=== PATIENT | female | born 1995 | race Caucasian/White ===

== ENCOUNTER 2022-07-30 20:37 | Outpatient (CLI) | payer BC ==
[2022-07-30 21:54] LABS: BASOPHILS % (AUTO) 0.5 %; EOSINOPHILS # (AUTO) 0.1 10^3/uL (0.0-0.7); EOSINOPHILS % (AUTO) 1.4 %; HCT - HEMATOCRIT 37.1 % (37.0-47.0); HGB - HEMOGLOBIN 12.2 g/dL (12.0-16.0); LYMPHOCYTES # (AUTO) 2.8 10^3/uL (1.5-3.5); LYMPHOCYTES % (AUTO) 32.7 %; MEAN CORPUSCULAR HEMOGLOBIN 29.4 pg (27.0-31.0); MEAN CORPUSCULAR HGB CONC 32.9 g/dL (32.0-36.0); MEAN CORPUSCULAR VOLUME 89.4 fL (81.0-99.0); MEAN PLATELET VOLUME 9.7 fL (7.9-10.8); MONOCYTES # (AUTO) 0.6 10^3/uL (0.0-1.0); MONOCYTES % (AUTO) 7.2 %; PLT - PLATELET COUNT 235 10^3/uL (130-450); RED BLOOD COUNT 4.15 10^6/uL (4.20-5.40); RED CELL DISTRIBUTION WIDTH 13.2 % (12.0-15.0); WHITE BLOOD COUNT 8.6 x10^3/uL (4.8-10.8)
--- NOTE | 2022-07-30 22:56 | Ultrasound Report ---
PROCEDURE: OB First Trimester w/TV INDICATIONS: POSITIVE TEST OUTSIDE/PRIOR DATING DATA: Last menstrual period (LMP): 06/04/2022. LMP-based estimated date of delivery (RUTHIE): 06/11/2022. First dating scan (date and location): 07/30/2022. Estimated date of delivery (RUTHIE) from first dating scan: 03/08/2023. TECHNIQUE: Real-time scanning was performed of the fetus and maternal pelvic organs, with image documentation. Endovaginal scanning was also performed to better visualize the fetus and maternal ovaries. COMPARISON: None FINDINGS: Embryo: Single live intrauterine is identified with crown-rump length measuring 1.9 cm cor responding to 8 weeks 3 days. A small subchorionic hemorrhage is present measuring 2.5 x 2.2 x 3.1 cm . Heart rate: 169 bpm Measurement variability in dating: +/- 4 weeks by LMP, +/- 7 days by mean sac diameter (use before 6 weeks gestation if crown-rump length not able to be measured), +/- 5 days by crown-rump length (6-12 weeks gestation). Maternal organs: Ovaries demonstrate a left corpus luteal cyst.. IMPRESSION: Single live intrauterine with ultrasound gestational age of 8 weeks 3 days. Small subchorionic hemorrhage. Reviewed by: Sakina Pablo MD on 07/30/2022 10:54 PM PDT Approved by: Sakina Pablo MD on 07/30/2022 10:54 PM PDT Station ID: [id number]
[2022-08-01 05:09] LABS: RPR Non Reactive (Non Reactive)
[2022-08-01 08:08] LABS: HBsAG SCREEN Negative (Negative)
[2022-08-01 14:07] LABS: VARICELLA-ZOSTER AB IGG 155 index (Immune >165)
[2022-08-02 05:08] LABS: HIV SCREEN 4TH GENERATION Non Reactive (Non Reactive)
[2022-08-03 03:09] LABS: HCV AB Non Reactive (Non Reactive)
== END 2022-07-30 20:38 | disposition home or self-care (01) ==
LOC: DI 20:37
PROVIDERS: ATTEND Obstetrics & Gynecology
DX: Z32.01 Encounter for pregnancy test, result positive (principal); Z36.89 Encounter for other specified antenatal screening
CPT/HCPCS: 36415; 85025; 86592; 86762; 86787; 86803; 86850; 86900; 86901; 87340; 87389

== ENCOUNTER 2022-10-06 17:46 | Outpatient (CLI) | payer BC ==
--- NOTE | 2022-10-06 19:03 | Ultrasound Report ---
PROCEDURE: OB 14+ Weeks INDICATIONS: BLEEDING IN OUTSIDE/PRIOR DATING DATA: Last menstrual period (LMP): 06/04/2022. LMP-based estimated date of delivery (RUTHIE): 03/11/2023. First dating scan (date and location): 07/30/2022. Estimated date of delivery (RUTHIE) from first dating scan: . The below data below was generated using the ultrasound RUTHIE of 06/08/2022 TECHNIQUE: Real-time scanning was performed of the fetus, with image documentation and biometric measurements. COMPARISON: 07/30/2022 FINDINGS: General: A single living intrauterine gestation is present. Presentation: Variable Placenta: Placental position is posterior, without previa. Amniotic fluid index: 16.1 cm, normal for gestational age. heart rate: 143 beats per minute. Maternal cervical canal: 4 cm long; normal length is 2.5 cm or more. Estimated gestational age from initial scan: 18 weeks 1 day. Measurement variability for biometric dating: +/- 10 days from 12-20 weeks gestation, +/- 2 weeks fro m 20-30 weeks gestation, +/- 3 weeks for 30 weeks gestation or later. Anatomic survey: Diaphragm: Diaphragm is intact. Stomach: Left-sided stomach is present. Kidneys: No hydronephrosis. Normal is less than 5 mm in 2nd trimester, less than 7 mm in 3rd trimester. Bladder: Normal in size. Extremities: All 4 extremities identified. IMPRESSION: 1. 18 week 1 day live intrauterine . 2. Normal LEILANI. 3. Normal placenta. Reviewed by: Doyle Gutierrez on 10/06/2022 7:02 PM PDT Approved by: Doyle Gutierrez on 10/06/2022 7:02 PM PDT Station ID: [id number]
== END 2022-10-06 17:47 | disposition home or self-care (01) ==
LOC: DI 17:46
PROVIDERS: ATTEND Midwife
DX: O46.92 Antepartum hemorrhage, unspecified, second trimester (principal); Z3A.18 18 weeks gestation of pregnancy

== ENCOUNTER 2022-10-20 09:00 | Outpatient (CLI) | payer BC | END 2022-10-20 09:15 | disposition home or self-care (01) | LOC: LAB.N 09:00 | PROVIDERS: ATTEND Emergency Medicine | DX: R07.0 Pain in throat (principal) | CPT/HCPCS: 87070 ==

== ENCOUNTER 2023-01-17 11:24 | Outpatient (CLI) | payer BC | END 2023-01-17 11:25 | disposition home or self-care (01) | LOC: LAB 11:24 | PROVIDERS: ATTEND Obstetrics & Gynecology | DX: O09.91 Supervision of high risk pregnancy, unspecified, first trimester (principal) | CPT/HCPCS: 36415; 82950 ==

== ENCOUNTER 2023-01-22 07:12 | Outpatient (CLI) | payer BC ==
[2023-01-22 07:52] LABS: GTT GLUCOSE,FASTING 99 mg/dL (74-109)
[2023-01-25 07:10] LABS: LYME TOTAL AB CIA Negative (Negative)
== END 2023-01-22 07:13 | disposition home or self-care (01) ==
LOC: LAB 07:12
PROVIDERS: ATTEND Physician Assistant
DX: R73.02 Impaired glucose tolerance (oral) (principal); R53.83 Other fatigue
CPT/HCPCS: 36415; 82607; 82951; 82952; 83921; 86618

== ENCOUNTER 2023-02-03 08:00 | Outpatient (CLI) | payer BC | END 2023-02-03 23:59 | disposition home or self-care (01) | LOC: LAB.WC 08:00 | PROVIDERS: ATTEND Obstetrics & Gynecology | DX: Z36.85 Encounter for antenatal screening for Streptococcus B (principal) | CPT/HCPCS: 87797 ==

== ENCOUNTER 2023-02-10 17:12 | Outpatient (CLI) | payer BC ==
--- NOTE | 2023-02-11 11:22 | Ultrasound Report ---
PROCEDURE: OB F/U or Repeat INDICATIONS: GESTATIONAL DIABETES OUTSIDE/PRIOR DATING DATA: Last menstrual period (LMP): 06/04/2022. LMP-based estimated date of delivery (RUTHIE): 03/11/2023. First dating scan (date and location): 07/30/2022. Estimated date of delivery (RUTHIE) from first dating scan: 03/08/2023. The below data below was generated using the ultrasound RUTHIE of 03/11/2023 TECHNIQUE: Real-time scanning was performed of the fetus, with image documentation and biometric measurements. Endovaginal scanning: Not performed. COMPARISON: OB ultrasound, 10/06/2022 and 07/30/2022. FINDINGS: General: A single living intrauterine gestation is present. Presentation: Vertex Placenta: Placental position is posterior, without previa. Amniotic fluid index: 15.1 cm, with the largest pocket 4.4 cm. heart rate: 123 beats per minute. Maternal cervical canal: Not visualized. biometrics: Biparietal diameter: 36 weeks 5 days Head circumference: 38 weeks 4 days Abdominal circumference: 37 weeks 6 days Femur length: 35 weeks 3 days Estimated gestational age from initial scan: 35 weeks 6 days. Composite gestational age from present scan: 37 weeks 1 day Estimated weight and percentile: 3160.7 g; 85.5% for gestational age Measurement variability in biometric dating: +/- 10 days from 12-20 weeks gestation, +/- 2 weeks from 20-30 weeks gestation, +/- 3 weeks at 30 weeks gestation or more. IMPRESSION: 1. Single living IUP redemonstrated. 2. The estimated weight is 85.8% for gestational age. 3. LEILANI 15.1 cm. 4. Cervix is not visualized. Reviewed by: Dwayne Juarez MD on 02/11/2023 11:21 AM PDT Approved by: Dwayne Juarez MD on 02/11/2023 11:21 AM PDT Station ID: [id number]
== END 2023-02-10 17:13 | disposition home or self-care (01) ==
LOC: DI 17:12
PROVIDERS: ATTEND Obstetrics & Gynecology
DX: O24.419 Gestational diabetes mellitus in pregnancy, unspecified control (principal); Z3A.37 37 weeks gestation of pregnancy

== ENCOUNTER 2023-02-16 08:00 | Outpatient (CLI) | payer BC ==
[2023-02-16 10:33] LABS: BILIRUBIN,URINE NEGATIVE (NEGATIVE); GLUCOSE, URINE (UA) NEGATIVE (NEGATIVE); KETONES,URINE (UA) NEGATIVE (NEGATIVE); LEUKOCYTE ESTERASE, URINE NEGATIVE (NEGATIVE); NITRITE,URINE NEGATIVE (NEGATIVE); OCCULT BLOOD,URINE TRACE-INTA (NEGATIVE); PROTEIN,URINE NEGATIVE (NEGATIVE); UROBILINOGEN,URINE 1 (NORMAL) E.U./dL (NORMAL)
[2023-02-16 11:03] LABS: CLARITY,URINE CLEAR (CLEAR); WBC,URINE 0-3 /HPF (0-5)
[2023-02-16 11:04] LABS: BACTERIA,URINE Rare /HPF (None Seen); RBC,URINE 0-5 /HPF (0-5); SQUAMOUS EPITHELIAL CELL,UR FEW Squamous (<= Few)
[2023-02-16 11:05] LABS: CRYSTALS,URINE >50 Calcium Oxalate /LPF
[2023-02-16 11:28] LABS: CREATININE,URINE 48.8 mg/dL; PROTEIN/CREATININE RATIO,URINE 0.1 (<=0.2)
== END 2023-02-16 23:59 | disposition home or self-care (01) ==
LOC: LAB.R 08:00
PROVIDERS: ATTEND Obstetrics & Gynecology
DX: O24.419 Gestational diabetes mellitus in pregnancy, unspecified control (principal); O99.891 Other specified diseases and conditions complicating pregnancy; R31.9 Hematuria, unspecified
CPT/HCPCS: 81001; 82570; 84156; 87086

== ENCOUNTER 2023-02-19 07:49 | Outpatient (CLI) | payer BC ==
--- NOTE | 2023-02-20 12:45 | Ultrasound Report ---
PROCEDURE: Abdomen Limited INDICATIONS: RIGHT FLANK PAIN TECHNIQUE: Real-time focused scanning was performed of the abdomen, with image documentation. COMPARISONS: None. FINDINGS: Liver: Liver is normal in size and homogeneous in echotexture. Appropriate hepatopedal portal vein flow. Gallbladder: The gallbladder is normal without stones, sludge, wall thickening, or pericholecystic fl uid. No sonographic Shelton's sign per the technologist. Biliary ducts: Intrahepatic bile ducts are non-dilated. Extrahepatic bile duct caliber measures 3 m m. Normal is 6-7 mm or less in diameter, or 10 mm or less post-cholecystectomy. Pancreas: Visualized portions of the pancreas are sonographically normal. Right kidney: Normal in size and echotexture. Right kidney measures 1.9 cm long. No hydronephrosis o r nephrolithiasis. No solid masses. No complex renal cystic lesions which require follow-up. Aorta: Visualized aorta is normal in caliber at less than 3 cm. IVC: Intrahepatic inferior vena cava is patent. Miscellaneous: The patient is reportedly 8 months . The fetus was not evaluated. IMPRESSION: 1. No evidence of right hydronephrosis or visible hydroureter. 2. Other right upper quadrant structures have a normal sonographic appearance. Reviewed by: Marguerite Smyth MD on 02/20/2023 12:43 PM PDT Approved by: Marguerite Smyth MD on 02/20/2023 12:43 PM PDT Station ID: [id number]
== END 2023-02-19 07:50 | disposition home or self-care (01) ==
LOC: DI 07:49
PROVIDERS: ATTEND Obstetrics & Gynecology
DX: R10.9 Unspecified abdominal pain (principal)

== ENCOUNTER 2023-02-21 14:17 | Outpatient (CLI) | payer BC ==
[2023-02-21 14:46] VITALS: BP 115/66; O2SAT 98
--- NOTE | 2023-02-21 15:51 | PROCEDURE REPORT ---
- HPI Diagnosis/Indication for NST: Gestational Diabetes Current EDU 03/11/23 Gestation 37 Weeks and 3 Days 3 Para 3 Vital Signs Temperature 98.4 F 02/21/23 14:27 Heart Rate 78 02/21/23 14:27 Respiratory Rate 16 02/21/23 14:27 Blood Pressure 115/66 02/21/23 14:27 Temperature 98.4 F 02/21/23 15:15 Heart Rate 78 02/21/23 15:15 Respiratory Rate 16 02/21/23 15:15 Blood Pressure 115/66 02/21/23 15:15 O2 Saturation 98 02/21/23 14:38 If not protocol: Oxygen Flow, liters/minute - NST Procedure NST Procedure Start Date 02/21/23 Start Time 14:27 Stop Time 15:14 Vibroacoustic Stimulation Used No Patient States Movement Yes 115 mod maribell + A cells no D cells reactive - Results and Plan Findings/Impression: reassuring NST D/C home with scheduled ANC Plan: D/C home with precautions going for BPP today.
== END 2023-02-21 15:20 | disposition home or self-care (01) ==
LOC: WFO 14:17 → FBP 14:18 → WFO 15:20
PROVIDERS: ATTEND Obstetrics & Gynecology
DX: O24.419 Gestational diabetes mellitus in pregnancy, unspecified control (principal); Z3A.37 37 weeks gestation of pregnancy
CPT/HCPCS: 59025

== ENCOUNTER 2023-02-21 15:24 | Outpatient (CLI) | payer BC ==
--- NOTE | 2023-02-21 16:36 | Ultrasound Report ---
PROCEDURE: OB Biophysical Profile INDICATIONS: GESTATIONAL DIABETES OUTSIDE/PRIOR DATING DATA: Last menstrual period (LMP): 06/04/2022. LMP-based estimated date of delivery (RUTHIE): 03/11/2023. First dating scan (date and location): 07/30/2022. Estimated date of delivery (RUTHIE) from first dating scan: 03/08/2023. The below data below was generated using the LMP RUTHIE of 03/11/2023 TECHNIQUE: Real-time scanning was performed of the fetus, with image documentation and biometric garcia surements. Biophysical profile was also obtained. COMPARISON: 07/30/2022, 10/06/2022, 02/10/2023 FINDINGS: General: A single living intrauterine gestation is present. Presentation: Cephalic Placenta: Placental position is posterior, without previa. Amniotic fluid index: 15.1 cm heart rate: 153 beats per minute. Maternal cervical canal: 3.6 cm Biophysical profile: Tone: 2 points. Movement: 2 points. Respiration: 0 points. Largest pocket of fluid: 2 points. Umbilical artery Doppler: Abdomen 2.57, mid 1.98, placenta 2.12 IMPRESSION: 1. Biophysical profile score 6/8. 2. LEILANI is normal measuring 15.6 cm. 3. Normal cord Dopplers. Reviewed by: Doyle Gutierrez on 02/21/2023 4:35 PM PDT Approved by: Doyle Gutierrez on 02/21/2023 4:35 PM PDT Station ID: [id number]
== END 2023-02-21 15:25 | disposition home or self-care (01) ==
LOC: DI 15:24
PROVIDERS: ATTEND Nurse Practitioner
DX: O24.419 Gestational diabetes mellitus in pregnancy, unspecified control (principal); Z3A.00 Weeks of gestation of pregnancy not specified

== ENCOUNTER 2023-02-26 13:50 | Outpatient (CLI) | payer BC ==
[2023-02-26 14:06] VITALS: BP 114/69
--- NOTE | 2023-02-26 17:06 | PROCEDURE REPORT ---
- HPI Diagnosis/Indication for NST: Gestational Diabetes Current EDU 03/11/23 Gestation 38 Weeks and 1 Days 3 Para 2 Vital Signs Temperature 99.0 F 02/26/23 14:02 Heart Rate 86 02/26/23 14:02 Respiratory Rate 16 02/26/23 14:02 Blood Pressure 114/69 02/26/23 14:02 Temperature 99.0 F 02/26/23 14:02 Heart Rate 86 02/26/23 14:02 Respiratory Rate 16 02/26/23 14:02 Blood Pressure 114/69 02/26/23 14:02 O2 Saturation If not protocol: Oxygen Flow, liters/minute - NST Procedure NST Procedure Start Date 02/26/23 Start Time 14:00 Stop Time 14:30 Vibroacoustic Stimulation Used No Patient States Movement Yes 38+1 weeks, gestational diabetes 140, moderate variability, +accels, no decels reactive NST
== END 2023-02-26 14:35 | disposition home or self-care (01) ==
LOC: WFO 13:50 → FBP 13:51 → WFO 14:35
PROVIDERS: ATTEND Obstetrics & Gynecology Obstetrics
DX: O24.419 Gestational diabetes mellitus in pregnancy, unspecified control (principal); Z3A.38 38 weeks gestation of pregnancy
CPT/HCPCS: 59025

== ENCOUNTER 2023-03-02 09:40 | Outpatient (CLI) | payer BC ==
[2023-03-02 09:59] VITALS: BP 115/63
--- NOTE | 2023-03-02 19:47 | PROCEDURE REPORT ---
- HPI Diagnosis/Indication for NST: Gestational Diabetes (on metformin) Current EDU 03/11/23 Gestation 38 Weeks and 5 Days 3 Para 2 Vital Signs Temperature 97.7 F 03/02/23 09:45 Heart Rate 87 03/02/23 09:45 Respiratory Rate 16 03/02/23 09:45 Blood Pressure 115/63 03/02/23 09:45 Temperature 97.7 F 03/02/23 09:45 Heart Rate 87 03/02/23 09:45 Respiratory Rate 16 03/02/23 09:45 Blood Pressure 115/63 03/02/23 09:45 O2 Saturation If not protocol: Oxygen Flow, liters/minute - NST Procedure NST Procedure Start Date 03/02/23 Start Time 09:50 Stop Time 10:24 Vibroacoustic Stimulation Used No Patient States Movement Yes NST reviewed in real time. acels. no decels. moderated variability. normal baseline. = reactive.
== END 2023-03-02 10:30 | disposition home or self-care (01) ==
LOC: WFO 09:40 → FBP 09:42 → WFO 10:30
PROVIDERS: ATTEND Obstetrics & Gynecology
DX: O24.415 Gestational diabetes mellitus in pregnancy, controlled by oral hypoglycemic drugs (principal); Z3A.38 38 weeks gestation of pregnancy
CPT/HCPCS: 59025

== ENCOUNTER 2023-03-03 19:41 | Outpatient (CLI) | payer BC ==
[2023-03-03 21:22] VITALS: BP 136/58
--- NOTE | 2023-03-03 23:09 | PROCEDURE REPORT ---
- HPI Diagnosis/Indication for NST: Gestational Diabetes Current EDU 03/09/23 Gestation 39 Weeks and 1 Days 3 Para 2 Vital Signs Temperature 98.4 F 03/03/23 19:50 Heart Rate 71 03/03/23 19:50 Respiratory Rate 16 03/03/23 19:50 Blood Pressure 136/58 H 03/03/23 19:50 Temperature 98.4 F 03/03/23 19:50 Heart Rate 71 03/03/23 19:50 Respiratory Rate 16 03/03/23 19:50 Blood Pressure 136/58 H 03/03/23 19:50 O2 Saturation If not protocol: Oxygen Flow, liters/minute - NST Procedure NST Procedure Start Date 03/03/23 Start Time 19:49 Stop Time 20:10 Vibroacoustic Stimulation Used No Patient States Movement Yes - Results and Plan Plan: Patient is a 27-year-old -0-0-3 at 38 weeks 6 days gestation here for NST. NST Performed 03/03/2023 NST Read 03/03/2023 FHT: 125 bpm baseline, moderate variability, accelerations present, no decelerations. Reactive NST [place]: Irregular Diagnosis 38 weeks gestation Gestational diabetes Patient initially brought for induction of labor, but currently unable, so assessed wellbeing. No concern at this time, patient will return for induction.
== END 2023-03-03 20:23 | disposition home or self-care (01) ==
LOC: WFO 19:41 → FBP 19:42 → WFO 20:23
PROVIDERS: ATTEND Obstetrics & Gynecology
DX: O24.419 Gestational diabetes mellitus in pregnancy, unspecified control (principal); Z3A.38 38 weeks gestation of pregnancy
CPT/HCPCS: 59025; 99212

== ENCOUNTER 2023-03-03 22:00 | Inpatient (IN) | payer BC ==
[2023-03-03] MEDS ORDERED: NIFEdipine 10 MG CAPSULE PO PRN (22:37)
[2023-03-03] MEDS ORDERED: fentaNYL 100 MCG/2 ML VIAL IVP PRN (22:37)
[2023-03-03] MEDS ORDERED: lidocaine 1% 20 ML MDV ID PRN (22:37)
[2023-03-03] MEDS ORDERED: OXYTOCIN 10 UNIT/ML VIAL IM PRN (22:37)
[2023-03-03] MEDS ORDERED: CARBOPROST TROMETHAMINE 250 MCG/ML AMP IM PRN (22:37)
[2023-03-03] MEDS ORDERED: OXYTOCIN/SODIUM CHLORIDE 500 ML IV PRN (22:37)
[2023-03-03] MEDS ORDERED: miSOPROStoL 200 MCG TABLET PR PRN (22:37)
[2023-03-03] MEDS ORDERED: TRANEXAMIC ACID IN NACL 1,000 MG/100 ML BAG IV PRN (22:37)
[2023-03-03] MEDS ORDERED: hydrALAZINE INJ 20 MG/ML VIAL IVP PRN ×2 (22:37)
[2023-03-03] MEDS ORDERED: LABETALOL 20 MG/4 ML SYRINGE IVP PRN ×3 (22:37)
[2023-03-03] MEDS ORDERED: TERBUTALINE 1 MG/ML VIAL SUBQ PRN (22:37)
[2023-03-03] MEDS ORDERED: miSOPROStoL 200 MCG TABLET BC PRN (22:37)
[2023-03-03] MEDS ORDERED: LACTATED RINGERS 1,000 ML IV PRN (22:37)
[2023-03-03] MEDS ORDERED: SODIUM CHLORIDE FLUSH 0.9% 10 ML SYRINGE IVP PRN (22:37)
[2023-03-03] MEDS ORDERED: METHYLERGONOVINE 0.2 MG/ML VIAL IM PRN (22:37)
--- NOTE | 2023-03-03 22:40 | HISTORY & PHYSICAL EXAMINATION ---
Admit History - : 3 Parity: 2 Risk/History: positive: Gestational diabetes, Other (History of shoulder dystocia) - Mother's Labs Mother's Blood Type: positive: O Mother's RH: positive: Positive GBS: positive: Group B Step Negative Rubella Status: positive: Immune - Other Maternal History Other Maternal History: HPI: Patient is a 27-year-old -0-0-3 at 38 weeks 6 days gestation presenting today for cervical ripening to progress to induction tomorrow. She has good movement. Reactive NST today. Denies loss of fluid. No MAHARAJ/BV or RUQP. No vaginal bleeding. Denies nausea and vomiting. Denies urinary urgency or dysuria. All other symptoms reviewed and were negative except per HPI. Course LMP: 06/04/2022 RUTHIE by LMP:03/11/2023 Initial U/S:07/30/2022 @ 8w4d c/w LMP (03/08/2023) FINAL RUTHIE:03/11/2023 RISKS: h/o SHOULDER DYSTOCIA 8#12oz baby, resolved after 1 minute. 2.5 ago [ ] growth U/S at 36-37w for delivery planning 02/11 ultraound with 85.5%ile at 35w6d. 3160 g. HC 33.66 82.9%ile AC 34 96.4%ile hc/AC 0.99 40%ile discussed risk of repeat shoulder dystocia - and how U/S can be off by a significant amount. Pt prefers . GESTATIONAL DIABETES on metformin. sugars wnl. nsts ordered. discussed induction at 39 weeks. - hopes not to have induction as wants natural labor [ ] seen on L&D late jan for R flank pain, likely stone, renal U/S 1 week later wnl. 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 Wants waterbirth - told only labor in tub prefers female provider but understands our call system. Blood type O+ Antibody negative CBC: PLT 235 HCT 37.1 HGB 12.2 RUB:immune VZV:non immune HBsAg negative HepC negative RPR/AB-EIA:negative HIV:negative PAP:02/2021 normal GC/CT: DECLINES 02/03 HSV:denies self or partner Genetic testing:no thank you vaccines: declines all. 50gm OGCT: 143 3HR GTT: 99,229,198,172, Breast Pump:Has one already 3rd trimester H/H 12.6 / 36.5 PLT 176 GBS: collected 02/03 negative Delivery plan: MOD: unmedicated vaginal delivery. PMH asthma Acif Reflux PSH Tonsils and adenoidectomy Sinus surgery OB History 1. 09/23/2018, 37 weeks, , twins, females, 5 pounds 1 ounces, 5 pounds 13 ounces. Twin A: Cerebellar hypoplasia and seizures, twin B retained placenta 2. 06/04/2020, 39 weeks 4 days, , female, 8 pounds 12 ounces, heart defect, Lorraine Bekah syndrome, seizures, shoulder dystocia. SH Denies tobacco, alcohol, drugs Family History Father: heart disease, CVA, [place] Mother: Breast cancer Brother: Asthma MGM: Unsure cancer MGF: Seizures, heart disease Allergies No known drug allergies Medications Metformnin 500mg QHS D3 Iron PNV Physical exam: General: Alert, oriented, no acute distress Head: Normal cephalic atraumatic Eyes: PERRLA, extraocular motions intact. Respiratory: Normal rate of respiration. No accessory muscle use, normal respiratory effort. Cardiovascular: Regular rate and rhythm Abdomen: Gravid, nontender, nondistended Extremities: Normal range of motion Neuro: Oriented x3. Normal movements Psych: Appropriate mood and affect. Normal judgment and insight SVE: 250/-3 FHT: 125 bpm baseline, moderate variability, accelerations present, no decelerations [place]: Irregular Plan 27-year-old -0-0-3 at 38 weeks 6 days gestation admitted for planned induction. 1. Induction of labor - Patient was previously counseled the risk, benefits, alternatives of induction of labor and again agrees today. -She agrees to plan of misoprostol for cervical ripening. If successful, will likely progress towards induction of amniotomy versus oxytocin. 2. 38 weeks gestation 3. Gestational diabetes, A2, managed with oral antihyperglycemics -Every 4 hour glucose checks, 2 hours in active labor 4. History of shoulder dystocia -Counseled on the risk of repeat shoulder dystocia and declined section, wishes to proceed with induction. 5. Hesitancy with male providers. -Prior to scheduling, patient was offered induction on Tuesday when a female private provider would be here follow-up declines at like to proceed - NST Procedure NST Procedure Start Time 19:49 Stop Time 20:10 Meds/Allgy - Allergies Allergies/Adverse Reactions: Allergies Allergy/AdvReac Type Severity Reaction Status Date / Time gluten Allergy Cramps Verified 02/08/23 15:08 Plan for Labor - Plan For Labor I expect patient to be DC'd or transferred within 96 hours.: Yes
[2023-03-03] MEDS ORDERED: SODIUM CHLORIDE FLUSH 0.9% 10 ML SYRINGE IVP SCH (23:00)
[2023-03-03 23:20] LABS: BASOPHILS % (AUTO) 0.1 %; EOSINOPHILS # (AUTO) 0.1 10^3/uL (0.0-0.7); HCT - HEMATOCRIT 33.3 % (37.0-47.0); HGB - HEMOGLOBIN 11.6 g/dL (12.0-16.0); LYMPHOCYTES # (AUTO) 1.7 10^3/uL (1.5-3.5); LYMPHOCYTES % (AUTO) 24.3 %; MEAN CORPUSCULAR HEMOGLOBIN 32.4 pg (27.0-31.0); MEAN CORPUSCULAR HGB CONC 34.8 g/dL (32.0-36.0); MEAN PLATELET VOLUME 10.7 fL (7.9-10.8); MONOCYTES # (AUTO) 0.6 10^3/uL (0.0-1.0); MONOCYTES % (AUTO) 8.1 %; NEUTROPHILS # (AUTO) 4.5 10^3/uL (1.5-6.6); NEUTROPHILS % (AUTO) 66.1 %; PLT - PLATELET COUNT 166 10^3/uL (130-450); RED BLOOD COUNT 3.58 10^6/uL (4.20-5.40); RED CELL DISTRIBUTION WIDTH 13.5 % (12.0-15.0); WHITE BLOOD COUNT 6.8 x10^3/uL (4.8-10.8)
[2023-03-03] MEDS: miSOPROStoL 100 MCG TABLET VG SCH (23:44)
[2023-03-04] MEDS: LACTATED RINGERS 1,000 ML IV SCH ×2 (00:51→11:45)
[2023-03-04] MEDS: miSOPROStoL 100 MCG TABLET VG SCH (03:39)
--- NOTE | 2023-03-04 08:51 | PROVIDER PROGRESS NOTE ---
Labor Progress Note - Uterine Monitoring Uterine Monitoring Mode: positive: External toco Contraction Frequency (min/apart): 2-4 Contraction Intensity: positive: Moderate Uterine Resting Tone: positive: Soft - Monitoring Monitor Mode: positive: External ultrasound Heart Rate Baseline: 130 Heart Rate Variability: positive: Moderate (6-25 bmp) Accelerations: positive: Present, 15x15 Decelerations: positive: None - Vaginal Exam Dilation (in cm): 4 Effacement (%): 50 Station: -3 - Labor Progress Note Labor Progress Note/Additional Text: Patient had a prolonged deceleration with him last night after her second dose of misoprostol. Subsequently had category 1 tracing further into the night. She continues to decline IV so we are hesitant to do misoprostol. I offered amniotomy, but when I went to check, she started noticing leaking of fluid and is found to be grossly ruptured upon getting in the bed. She was checked found to be 4 cm dilated and was allowed to continue laboring. We discussed the risks of lack of IV access. We also discussed active management of the third stage of labor, and declines oxytocin at this time. She says she never had it at her previous deliveries and thinks breast-feeding will be enough. We discussed that it can take some time for her baby to latch in the first minutes are often related to the greatest amount of blood loss. She will think about this but is currently declining oxytocin..
[2023-03-04] MEDS ORDERED: LIDOCAINE 2%-EPI 1:100000 20 ML MDV ONE ×2 (11:16→16:00)
[2023-03-04] MEDS ORDERED: ROPIVACAINE 0.2% 200 MG/100 ML BAG EP ONE (12:00)
[2023-03-04] MEDS ORDERED: ePHEDrine 50 MG/ML VIAL IVP PRN ×2 (12:21→16:41)
[2023-03-04] MEDS ORDERED: ROPIVACAINE 0.2% 200 MG/100 ML BAG EP PRN (12:21)
[2023-03-04] MEDS ORDERED: ONDANSETRON 4 MG/2 ML VIAL IVP PRN ×2 (12:21→16:41)
[2023-03-04] MEDS ORDERED: NALOXONE 0.4 MG/ML VIAL IVP PRN ×2 (12:21→16:41)
[2023-03-04] MEDS ORDERED: diphenhydrAMINE INJ 50 MG/ML VIAL IVP PRN (12:21)
[2023-03-04] MEDS ORDERED: METOCLOPRAMIDE 10 MG/2 ML VIAL IVP PRN ×2 (12:21→16:41)
[2023-03-04] MEDS ORDERED: NALBUPHINE 10 MG/ML AMP IVP PRN (12:21)
--- NOTE | 2023-03-04 12:29 | ANESTHESIA ---
Pre-Anesthesia VS, & Labs - Diagnosis term labor,pain - Procedure epidural for Vital Signs: Temp Pulse Resp BP Pulse Ox O2 Flow Rate 36.8 C 71 18 124/65 100 03/04/23 07:56 03/04/23 07:56 03/04/23 07:56 03/04/23 07:56 03/04/23 07:56 Height: 5 ft 7 in Weight (kg): 90.718 kg Body Mass Index: 31.3 BMI Classification: Obese - NPO Last Fluid Intake: t/o day Last Food Intake: lunch - Is Patient ?: Yes - Lab Results Current Lab Results: Laboratory Tests 03/03/23 22:58: WBC 6.8, RBC 3.58 L, Hgb 11.6 L, Hct 33.3 L, MCV 93.0, MCH 32.4 H, MCHC 34.8, RDW 13.5, Plt Count 166, MPV 10.7, Neut # (Auto) 4.5, Lymph # (Auto) 1.7, [place] # (Auto) 0.6, Eos # (Auto) 0.1, Baso # (Auto) 0.0, Absolute Nucleated RBC 0.00, Nucleated RBC % 0.0 03/03/23 22:58: Blood Type O POSITIVE, Antibody Screen NEGATIVE Lab results reviewed: Yes Fish Bones: 03/03/23 22:58 Home Medications and Allergies Active Medications Carboprost Tromethamine (Carboprost Tromethamine 250 Mcg/Ml Amp) 250 mcg IM .ONCE PRN PRN Reason: Hemorrhage Fentanyl (Fentanyl 100 Mcg/2 Ml Vial) 50 mcg IVP Q1H PRN PRN Reason: Severe Pain (score 7-10) Hydralazine HCl (Hydralazine Inj 20 Mg/Ml Vial) 10 mg IVP .ONCE PRN; Protocol PRN Reason: SBP> or= 160 OR DBP> or= 110 Hydralazine HCl (Hydralazine Inj 20 Mg/Ml Vial) 5 - 10 mg IVP Q20M PRN; Pro tocol PRN Reason: SBP> or= 160 OR DBP> or= 110 Oxytocin/Sodium Chloride (Pitocin/Sodium Chloride) 500 mls @ 999 mls/hr IV PRN PRN; Protocol PRN Reason: POST- HEMORR PREVENTION Tranexamic Acid (Tranexamic 1,000 Mg/100ml-Nacl) 1,000 mg in 100 mls @ 600 mls/hr IV Q30M PRN PRN Reason: EBL >1200mL and within 3hr Lactated Ringer's (Lr) 1,000 mls @ 125 mls/hr IV .Q8H [facility] Last Admin: 03/04/23 00:51 Dose: Not Given Lactated Ringer's (Lr) 1,000 mls @ 999 mls/hr IV PRN PRN PRN Reason: PER PHYSICIAN ORDER Labetalol HCl (Labetalol 20 Mg/4 Ml Syringe) 20 mg IVP .ONCE PRN; Protocol PRN Reason: SBP> or= 160 OR DBP> or= 110 Labetalol HCl (Labetalol 20 Mg/4 Ml Syringe) 20 - 80 mg IVP Q10M PRN; Protocol PRN Reason: SBP> or= 160 OR DBP> or= 110 Labetalol HCl (Labetalol 20 Mg/4 Ml Syringe) 20 - 40 mg IVP Q10M PRN; Protocol PRN Reason: SBP> or= 160 OR DBP> or= 110 Lidocaine HCl (Lidocaine 1% 20 Ml Mdv) 20 ml ID .ONCE PRN PRN Reason: PERINEAL REPAIR Stop: 03/06/23 22:37 Methylergonovine Maleate (Methylergonovine 0.2 Mg/Ml Vial) 0.2 mg IM .ONCE PRN PRN Reason: Hemorrhage Misoprostol (Misoprostol 200 Mcg Tablet) 600 mcg BC .ONCE PRN PRN Reason: Hemorrhage Misoprostol (Misoprostol 200 Mcg Tablet) 800 mcg DC .ONCE PRN PRN Reason: Hemorrhage Misoprostol (Misoprostol 100 Mcg Tablet) 25 mcg VG Q4H [facility] Last Admin: 03/04/23 03:39 Dose: 25 mcg Nifedipine (Nifedipine 10 Mg Capsule) 10 - 20 mg PO Q20M PRN; Protocol PRN Reason: SBP> or= 160 OR DBP> or= 110 Oxytocin (Oxytocin 10 Unit/Ml Vial) 10 unit IM .ONCE PRN PRN Reason: Step One if no IV access. Sodium Chloride (Sodium Chloride Flush 0.9% 10 Ml Syringe) 10 ml IVP Q8H [facility] Last Admin: 03/04/23 00:51 Dose: Not Given Sodium Chloride (Sodium Chloride Flush 0.9% 10 Ml Syringe) 10 ml IVP PRN PRN PRN Reason: NEEDED PER PROVIDER ORDERS Terbutaline Sulfate (Terbutaline 1 Mg/Ml Vial) 0.25 mg SUBQ .ONCE PRN PRN Reason: Tachystole Allergies/Adverse Reactions: Allergies Allergy/AdvReac Type Severity Reaction Status Date / Time gluten Allergy Cramps Verified 02/08/23 15:08 Anes History & Medical History - Anesthetic History Anesthesia Complications: reports: No previous complications Family history of Anesthesia Complications: Denies Family history of Malignant Hyperthermia: Denies - Medical History Cardiovascular: reports: None Smoking Status: Never smoker History of Cancer?: No - Obstetrical History : 3 Parity: 2 Events: reports: Gestational diabetes, Other (History of shoulder dystocia) Exam General: Alert, Oriented x3, Cooperative Respiratory: No respiratory distress Cardiovascular: Regular rate Neurological: Normal speech Mental/Cognitive Status: Alert/Oriented X3, Normal for patient Cognitive Status: Within normal limits Plan Anesthesia Type: Epidural Consent for Procedure(s) Verified and Reviewed: Yes Code Status: Attempt Resuscitation ASA classification: 2-Mild systemic disease Is this case an emergency?: No
--- NOTE | 2023-03-04 12:32 | PROVIDER PROGRESS NOTE ---
Labor Progress Note - Uterine Monitoring Uterine Monitoring Mode: positive: External toco Contraction Frequency (min/apart): 2-3 Contraction Intensity: positive: Strong Uterine Resting Tone: positive: Soft - Monitoring Monitor Mode: positive: External ultrasound Heart Rate Baseline: 130 Heart Rate Variability: positive: Moderate (6-25 bmp) Accelerations: positive: Present, 15x15 Decelerations: positive: Early, Variable, Intermittent (<50% x20 min) Strip Review: positive: Category II - Vaginal Exam Dilation (in cm): 9 Effacement (%): 90 Station: -1 - Labor Progress Note Labor Progress Note/Additional Text: Patient has been difficult to trace and difficult to control pain. She tried nitrous oxide been caught on the bathtub. Very uncomfortable with monitor is being held due to the pain. Eventually decided on an epidural due to the pain. Currently 9 cm and while still uncomfortable, is slightly improving. Anticipate . We will get more of a heart tracing as she is having intermittent decelerations that are early versus variable but are difficult. As she is more calm these are becoming more apparent.
--- NOTE | 2023-03-04 14:50 | CONSULTATION NOTE ---
Consultation Report: Pt dilated to 10, unable to feel contractions, epidural stopped per patient and staff request.
--- NOTE | 2023-03-04 14:53 | PROVIDER PROGRESS NOTE ---
Labor Progress Note - Uterine Monitoring Contraction Frequency (min/apart): 3-4 Contraction Intensity: positive: Moderate Uterine Resting Tone: positive: Soft - Monitoring Monitor Mode: positive: External ultrasound Heart Rate Baseline: 130 Heart Rate Variability: positive: Moderate (6-25 bmp) Accelerations: positive: Present, 15x15 Decelerations: positive: Early, Variable Strip Review: positive: Category II - Vaginal Exam Dilation (in cm): 10 Effacement (%): 100 Station: 1 - Labor Progress Note Labor Progress Note/Additional Text: Patient pushing for over an hour. Small amount of descent, but patient is getting tired. Agrees to oxytocin for hypotonic uterine contractions. Epidural dose decreased as well to allow sensation during pushing.
[2023-03-04] MEDS ORDERED: OXYTOCIN/SODIUM CHLORIDE 500 ML IV SCH (15:00)
--- NOTE | 2023-03-04 15:18 | CONSULTATION NOTE ---
Consultation Report: Epidural restarted at 5cc q50 mins after pt reported feeling contractions and legs tingling. Pt able to move B LE. Will reassess after bolus.
--- NOTE | 2023-03-04 15:39 | PROVIDER PROGRESS NOTE ---
Labor Progress Note - Uterine Monitoring Uterine Monitoring Mode: positive: External toco : 2-4 Contraction Intensity: positive: Moderate Uterine Resting Tone: positive: Soft - Monitoring Monitor Mode: positive: External ultrasound Heart Rate Baseline: 150 Heart Rate Variability: positive: Minimal (0-5 bpm) Accelerations: positive: Absent Decelerations: positive: Late, Recurrent (>50% x20 min) Strip Review: positive: Category II - Vaginal Exam Dilation (in cm): 10 Effacement (%): 100 Station: 1 - Labor Progress Note Labor Progress Note/Additional Text: Discussed limited options as fetus is tolerating labor less well. Took a break from pushing to assess heart rate without extra stress and decelerations have continued. Advised section for failure to descend. section was recommended. Risks, benefits and alternatives were discussed including but not limited to infection, bleeding that may require blood products or hysterectomy for life saving measures, injury to surrounding organs including but not limited to bowel, bladder, ureters, tubes and ovaries and/or the baby. Should injury occur it could require longer/additional surgery to repair. All questions were answered posed by patient.
[2023-03-04] MEDS ORDERED: LACTATED RINGERS 1,000 ML IV SCH ×2 (16:00→17:00)
[2023-03-04] MEDS ORDERED: AZITHROMYCIN INJ 500 MG in SODIUM CHLORIDE 0.9% 250 ML IV ONE (16:00)
[2023-03-04] MEDS ORDERED: ceFAZolin (2G) 2 GM in SODIUM CHLORIDE 0.9% MINIBAG 100 ML IV ONE (16:00)
[2023-03-04] MEDS ORDERED: ROPIVACAINE 0.5% PF 20 ML VIAL ONE (16:00)
[2023-03-04] MEDS ORDERED: ePHEDrine 50 MG/ML VIAL IVP ONE (16:02)
[2023-03-04] MEDS ORDERED: SODIUM CHLORIDE 0.9% 10 ML VIAL IVP ONE ×2 (16:02→16:03)
[2023-03-04] MEDS ORDERED: OXYTOCIN 10 UNIT/ML VIAL ONE ×2 (16:03→16:35)
[2023-03-04] MEDS ORDERED: fentaNYL 100 MCG/2 ML VIAL ONE (16:40)
[2023-03-04] MEDS ORDERED: fentaNYL 100 MCG/2 ML VIAL IVP PRN (16:41)
[2023-03-04] MEDS ORDERED: HYDROmorphone 0.5 MG/0.5 ML SYRINGE IVP PRN (16:41)
[2023-03-04] MEDS ORDERED: MORPHINE 2 MG/ML CARPUJECT IVP PRN (16:41)
[2023-03-04] MEDS ORDERED: ATROPINE ABBOJECT 1 MG/10 ML SYRINGE IVP PRN (16:41)
[2023-03-04] MEDS ORDERED: TRANEXAMIC ACID 1,000 MG/10 ML VIAL ONE (16:43)
[2023-03-04] MEDS ORDERED: ACETAMINOPHEN 1,000 MG/100 ML 1,000 MG/100 ML BAG IV ONE (16:48)
[2023-03-04] MEDS ORDERED: KETOROLAC 30 MG/ML VIAL ONE (17:21)
[2023-03-04] MEDS ORDERED: ONDANSETRON ODT 4 MG TABLET TL PRN (17:29)
[2023-03-04] MEDS ORDERED: SIMETHICONE CHEW 80 MG TABLET PO PRN (17:29)
[2023-03-04] MEDS ORDERED: OXYTOCIN/SODIUM CHLORIDE 500 ML IV PRN (17:29)
[2023-03-04] MEDS: KETOROLAC 30 MG/ML VIAL IVP SCH ×2 (17:30→23:15)
--- NOTE | 2023-03-04 17:37 | OPERATIVE REPORT ---
Operative Report - General Admit Date: 03/03/23 Procedure Date: 03/04/23 Planned Procedure: Primary low-transverse section Pre-Op Diagnosis: 39 weeks gestation, gestational diabetes, failure to descend Procedure Performed: Primary low-transverse section Post Op Diagnosis: Same, status post transverse section - Procedure Note Primary Surgeon: Carlin Nagel MD Secondary Surgeon: KELLI Charlton Anesthesia Provider: Franklin Franks CRNA Anesthesia Technique: Epidural Pathology: None Estimated Blood Loss (mL): 1,000 Findings: Normal-appearing tubes and ovaries. Fetus in the brow presentation with mentum posterior. Complications: None - Other Other Information/Narrative: section was recommended. Risks, benefits and alternatives were discussed including but not limited to infection, bleeding that may require blood products or hysterectomy for life saving measures, injury to surrounding organs including but not limited to bowel, bladder, ureters, tubes and ovaries and/or the baby. Should injury occur it could require longer/additional surgery to repair. The patient stated understanding and desired to proceed. All questions were answered posed by patient. Prior to being taken to the OR, 2 g of cefazolin and 500 mg of azithromycin were administered. The patient was taken to the operating room where regional anesthesia was found to be adequate. She was then prepared and draped in the usual sterile fashion in the dorsal supine position with a leftward tilt displacing the uterus. Spencer was draining to gravity. SCDs were on bilateral lower extremities. A pfannenstiel skin incision was then made with the scalpel and carried through to the underlying layer of fascia. The fascia was incised in the midline and the incision extended laterally with the Calzada scissors. The superior aspect of the facial incision was then grasped with the Mazin clamps, elevated and the un derlying rectus muscles dissected off sharply. Attention was then turned to the inferior aspect of this incision which in a similar fashion was grasped, elevated with the Mazin clamps and the rectus muscle dissected off sharply. The rectus muscles were in the midline. The peritoneum identified, grasped with the pick-ups and entered sharply with the Metzenbaum scissors. The peritoneal incision was then extended superiorly and inferiorly with good visualization of the bladder. The bladder blade was inserted. The vesicouterine peritoneum was identified, grasped with the pick-ups, and entered sharply with Metzenbaum scissors. This incision was then extended laterally and the bladder flap created digitally. The bladder blade was reinserted. The lower uterine segment was identified and incised in a transverse fashion with the scalpel. The uterine incision was then extended bluntly laterally. The bladder blade was removed. The fetus was in a cephalic presentation. The infants head delivered atraumatically. The anterior shoulders were delivered followed by the posterior shoulders then the remainder of the body. The infants mouth and nose were bulb suctioned. The umbilical cord was clamped times two and cut. The was handed to the pediatric team. The placenta was removed with gentle traction. Oxytocin was added to the IV fluid and was allowed to run freely. The uterus was exteriorized and cleared of all clots and debris. The uterine incision was inspected and found to be without any extensions and was repaired with 0 Vicryl in a running, locked fashion. A second imbricating layer was performed. Upon inspection, the repaired hysterotomy was found to be hemostatic. The uterus was firm and returned to the abdomen. The gutters were cleared of all clots and debris. The peritoneum was closed with a running suture of 2-0 Vicryl. The muscle layer was examined and found to be hemostatic. The fascia was reapproximated with 0 Vicryl in a running fashion. The subcutaneous tissue was closed with 2-0 Vicryl. The skin was closed in a subcuticular fashion with 4-0 Monocryl. The patient tolerated the procedure well. Sponge, lap and needle counts were correct times three. The patient was taken to the recovery room in stable condition. I appreciate the assistance of KELLI Charlton during this procedure, and the assistance in retraction, visualization, dissection, and overall assistance during the case were instrumental to the patient's wellbeing. APGARs: 8/8 weight: Pending
[2023-03-04] MEDS ORDERED: LACTATED RINGERS 1,000 ML IV ONE (17:39)
--- NOTE | 2023-03-04 18:16 | ANESTHESIA POST OP EVALUATION ---
Anesthesia Post Eval - Post Anesthesia Eval Vitals: Last Vital Signs Temp 36.5 C 03/04/23 18:14 Pulse 82 03/04/23 18:14 Resp 20 03/04/23 18:14 BP 110/62 03/04/23 18:14 Pulse Ox 100 03/04/23 18:14 O2 Flow Rate CV Function Including HR & BP: Stable Pain Control: Satisfactory (R shoulde pain still present but not as intense) Nausea & Vomiting: Negative Mental Status: Baseline Respiratory Status: Airway Patent Hydration Status: Satisfactory Anesthesia Complications: None - Other Details/Therapies Other Details/Therapies: epidural continuing to wear off, slowly. Sensation increasing, still unable to wiggle toes. VSS.
[2023-03-04] MEDS: ACETAMINOPHEN 500 MG TABLET PO SCH (19:22)
[2023-03-04] MEDS: oxyCODONE 5 MG TABLET PO PRN (20:42)
[2023-03-04] MEDS: DOCUSATE SODIUM 100 MG CAPSULE PO SCH (20:42)
[2023-03-04] MEDS: SODIUM CHLORIDE FLUSH 0.9% 10 ML SYRINGE IVP PRN (23:17)
[2023-03-05] MEDS: oxyCODONE 5 MG TABLET PO PRN ×7 (00:39→21:56)
[2023-03-05] MEDS ORDERED: SODIUM CHLORIDE FLUSH 0.9% 10 ML SYRINGE IVP SCH (01:00)
[2023-03-05] MEDS: ACETAMINOPHEN 500 MG TABLET PO SCH ×4 (03:26→21:56)
[2023-03-05] MEDS: KETOROLAC 30 MG/ML VIAL IVP SCH ×2 (05:25→11:25)
[2023-03-05] MEDS: SODIUM CHLORIDE FLUSH 0.9% 10 ML SYRINGE IVP PRN (05:28)
[2023-03-05 06:43] LABS: BASOPHILS % (AUTO) 0.2 %; EOSINOPHILS % (AUTO) 0.1 %; HCT - HEMATOCRIT 31.2 % (37.0-47.0); HGB - HEMOGLOBIN 10.6 g/dL (12.0-16.0); LYMPHOCYTES # (AUTO) 1.3 10^3/uL (1.5-3.5); LYMPHOCYTES % (AUTO) 14.6 %; MEAN CORPUSCULAR HEMOGLOBIN 31.6 pg (27.0-31.0); MEAN CORPUSCULAR VOLUME 93.1 fL (81.0-99.0); MEAN PLATELET VOLUME 10.5 fL (7.9-10.8); MONOCYTES # (AUTO) 0.7 10^3/uL (0.0-1.0); MONOCYTES % (AUTO) 7.2 %; NEUTROPHILS # (AUTO) 7.1 10^3/uL (1.5-6.6); NEUTROPHILS % (AUTO) 77.6 %; PLT - PLATELET COUNT 155 10^3/uL (130-450); RED BLOOD COUNT 3.35 10^6/uL (4.20-5.40); RED CELL DISTRIBUTION WIDTH 13.7 % (12.0-15.0); WHITE BLOOD COUNT 9.1 x10^3/uL (4.8-10.8)
[2023-03-05] MEDS: DOCUSATE SODIUM 100 MG CAPSULE PO SCH ×2 (09:00→21:56)
--- NOTE | 2023-03-05 11:20 | PROVIDER PROGRESS NOTE ---
Subjective - Prog Note Date Prog Note Date: 03/05/23 - Subjective Subjective: Subjective Patient reports she is doing well. Lochia appropriate. Denies heavy bleeding. Ambulating. Pelvic and abdominal pain well-controlled. Tolerating oral intake. Diet: Regular. Voiding without difficulty. Passing flatus. Denies BM. Patient is bonding with baby in room Breast feeding going well. Denies feeling lightheaded, dizzy or excessively fatigued. Objective General: Alert, oriented, no apparent distress. Cardiovascular: Regular rate. Regular rhythm. Lungs: No increased work of breathing. Abdomen: Uterus firm. Below umbilicus. No guarding or rebound. Extremities: No pain on palpation. No cords palpated. Distal pulses intact. Incision: Clean, dry, and intact. Assessment and Plan day 1. -Routine care -Anticipate discharge tomorrow Objective - Vital Signs/Intake & Output Vital Signs: Vital Signs x48h Temp Pulse Resp BP BP Pulse Ox 03/05/23 09:14 98.1 F 73 16 111/51 L 98 03/05/23 05:31 98.2 F 85 18 111/61 97 Intake & Output: Intake & Output 03/02/23 03/03/23 03/04/23 03/05/23 23:59 23:59 23:59 23:59 Intake Total 1002.2 Output Total 1450 1325 Balance -447.8 -1325 - Lab Results Fish Bones: 03/05/23 06:08 Other Labs: Lab Results x24hrs 03/05/23 Range/Units 06:08 WBC 9.1 (4.8-10.8) x10^3/uL RBC 3.35 L (4.20-5.40) 10^6/uL Hgb 10.6 L (12.0-16.0) g/dL Hct 31.2 L (37.0-47.0) % MCV 93.1 (81.0-99.0) fL MCH 31.6 H (27.0-31.0) pg MCHC 34.0 (32.0-36.0) g/dL RDW 13.7 (12.0-15.0) % Plt Count 155 (130-450) 10^3/uL MPV 10.5 (7.9-10.8) fL Neut # (Auto) 7.1 H (1.5-6.6) 10^3/uL Lymph # (Auto) 1.3 L (1.5-3.5) 10^3/uL Traverse # (Auto) 0.7 (0.0-1.0) 10^3/uL Eos # (Auto) 0.0 (0.0-0.7) 10^3/uL Baso # (Auto) 0.0 (0.0-0.1) 10^3/uL Absolute Nucleated RBC 0.00 x10^3/uL Nucleated RBC % 0.0 /100WBC
[2023-03-05] MEDS: IBUPROFEN 600 MG TABLET PO SCH ×2 (17:36→23:12)
[2023-03-06] MEDS: oxyCODONE 5 MG TABLET PO PRN ×5 (02:06→21:05)
[2023-03-06] MEDS: ACETAMINOPHEN 500 MG TABLET PO SCH ×3 (05:39→23:05)
[2023-03-06] MEDS: IBUPROFEN 600 MG TABLET PO SCH ×3 (07:49→21:04)
[2023-03-06] MEDS: DOCUSATE SODIUM 100 MG CAPSULE PO SCH ×2 (09:02→21:04)
--- NOTE | 2023-03-06 12:02 | PROVIDER PROGRESS NOTE ---
Subjective - Prog Note Date Prog Note Date: 03/06/23 - Subjective Subjective: Subjective Patient reports she is doing well. Occasional pain in the left lower quadrant, near the site of the fascial apex closure. Worse when going from sitting to standing. Lochia appropriate. Denies heavy bleeding. Ambulating, although spending a lot of time in bed. Encouraged ambulation and getting into the chair. Pelvic and abdominal pain well-controlled. Tolerating oral intake. Diet: Regular. Voiding without difficulty. Passing flatus. Denies BM. Patient is bonding with baby in room Breast feeding going well. Denies feeling lightheaded, dizzy or excessively fatigued. Objective General: Alert, oriented, no apparent distress. Cardiovascular: Regular rate. Regular rhythm. Lungs: No increased work of breathing. Abdomen: Uterus firm. Below umbilicus. No guarding or rebound. Extremities: No pain on palpation. No cords palpated. Distal pulses intact. Incision: Clean, dry, and intact. Assessment and Plan day 2. -Routine care -Anticipate discharge tomorrow Objective - Vital Signs/Intake & Output Vital Signs: Vital Signs x48h Temp Pulse Resp BP Pulse Ox 03/06/23 11:53 97.7 F 68 15 117/56 L 97 03/06/23 06:34 98.7 F 78 20 115/54 L 97 Intake & Output: Intake & Output 03/03/23 03/04/23 03/05/23 03/06/23 23:59 23:59 23:59 23:59 Intake Total 1002.2 600 Output Total 1550 1625 Balance -547.8 -1025 - Lab Results Fish Bones: 03/05/23 06:08
[2023-03-07] MEDS: oxyCODONE 5 MG TABLET PO PRN ×2 (00:55→04:48)
[2023-03-07] MEDS: IBUPROFEN 600 MG TABLET PO SCH ×2 (03:10→08:48)
[2023-03-07 03:27] VITALS: O2SAT 100
[2023-03-07] MEDS: ACETAMINOPHEN 500 MG TABLET PO SCH (07:21)
[2023-03-07 08:22] VITALS: BP 114/66
[2023-03-07] MEDS: DOCUSATE SODIUM 100 MG CAPSULE PO SCH (08:48)
--- NOTE | 2023-03-07 12:04 | DISCHARGE SUMMARY ---
"Discharge Summary Discharge Date: 03/07/23 Discharging Provider: Matti Primary Care Provider: Robe Code Status: Attempt Resuscitation Condition at Discharge: Good Discharge Disposition: 01 Home, Self Care - DIAGNOSES Admission Diagnoses: Gestational Diabetes - CONSULTS | PROCEDURES Procedures: Primary low transverse section - HOSPITAL COURSE Hospital Course: Patient is a 27-year-old -0-0-3 who presented for induction of labor secondary to gestational diabetes. She received Cytotec and oxytocin. She underwent a primary low-transverse section for failure to descend. Patient had an uncomplicated course and was discharged home on day 2. - ALLERGIES Allergies/Adverse Reactions: Allergies Allergy/AdvReac Type Severity Reaction Status Date / Time gluten Allergy Cramps Verified 02/08/23 15:08 - PHYSICAL EXAM AT DISCHARGE General Appearance: positive: No acute distress Respiratory: positive: Breath sounds nml Cardiovascular: positive: Regular rate & rhythm Abdomen: positive: Non-tender (firm fundus below the umbilicus. Incision is clean/dry/intat) Extremities: positive: No pedal edema - LABS Result Diagrams: 03/05/23 06:08"
--- NOTE | 2023-03-07 12:13 | Discharge Plan ---
Discharge Plan Problem Reviewed?: Yes Disposition: Home, Self Care Condition: Good Prescriptions: oxyCODONE [Roxicodone] 5 mg PO Q4HR PRN #16 tab PRN Reason: PAIN Docusate Sodium 100Mg Capsule [Colace 100Mg Capsule] 100 mg PO BID PRN #60 cap PRN Reason: Constipation Ibuprofen [Motrin] 600 mg PO Q6H PRN #30 tab PRN Reason: Pain 5-7 Diet: Regular Activity Restrictions: No lifting over 15 pounds Shower Restrictions: No Driving Restrictions: Yes (Low driving while taking pain medications and until can apply brakes emerge) No Smoking: If you smoke, Please STOP! Call for help. Follow-up with: Corrina Moreno PA [Primary Care Provider] -
--- NOTE | 2023-03-07 12:17 | PROVIDER PROGRESS NOTE ---
Subjective - Prog Note Date Prog Note Date: 03/07/23 Prog Note Time: 12:15 - Subjective Pt reports feeling: Improved Subjective: Patient is day 2 status post primary low-transverse section for failure to descend/face presentation. was complicated by gestational diabetes. Patient is doing well this morning. She is ambulating, tolerating regular diet, spontaneously voiding, passing flatus. Pain is well controlled. Objective - Vital Signs/Intake & Output Reviewed Vital Signs: Yes Vital Signs: Vital Signs x48h Temp Pulse Resp BP 03/07/23 08:14 98.2 F 85 18 114/66 Intake & Output: Intake & Output 03/04/23 03/05/23 03/06/23 03/07/23 23:59 23:59 23:59 23:59 Intake Total 1002.2 600 Output Total 1550 1625 Balance -547.8 -1025 - Objective General Appearance: positive: No acute distress Respiratory: positive: Breath sounds nml Cardiovascular: positive: Regular rate & rhythm Abdomen: positive: Non-tender (Firm fundus below the umbilicus. Incision is clean, dry, and intact.) Skin: positive: Color nml Extremities: positive: No pedal edema - Lab Results Fish Bones: 03/05/23 06:08 Assessment/Plan - Problem List (1) Delivery by section Impression: Reviewed signs and symptoms of depression. Patient discharged home with follow-up as outpatient.
--- NOTE | 2023-03-07 15:43 | Labor Flowsheet ---
Labor Flowsheet Datetime Report Generated by CPN: 03/07/2023 15:43 Datetime: 03/06/2023 11:54 VITAL SIGNS NBP Sys/Yun/Mean (mmHg): 117 : 56 : 71 Pulse: 66 LaborFlag: Labor Datetime: 03/05/2023 14:18 SpO2 (%): 98 Datetime: 03/04/2023 16:00 Stage of : Labor COMMUNICATION Communication: Provider at Bedside Communication Comments: Dr. Nagel call d/t failure to fetus failure to descent, pt. si gns consent. Datetime: 03/04/2023 15:45 UTERINE ACTIVITY Monitor Mode: External Frequency (min): 2-4 Quality: Strong Duration (sec): 60-80 Pattern: Normal: <= 5 Contractions in 10 Minutes Resting Tone (Palpate): Relaxed Contraction Comments: palpated, pt. pushing with contractions, no descent with pushing ASSESSMENT A Monitor Mode: Telemetry Variability: Moderate 6-25 bpm Decelerations: Variable Category: Category II Comments: provider bedside Datetime: 03/04/2023 15:15 FHR Baseline Rate : 130 Accelerations: 15X15 Datetime: 03/04/2023 15:00 Pitocin Checklist: Uterus Palpates Soft between Contractions Datetime: 03/04/2023 14:54 MEDICATIONS Pitocin (milliunits): Started @ 2 Datetime: 03/04/2023 14:00 STAGE 2 Pushing: Coached on Pushing Pushing Progress: Ineffective Pushing Datetime: 03/04/2023 13:44 Monitor Interventions for UA: [place] Adjusted Datetime: 03/04/2023 13:40 Pushing Position: Pushing with Contractions Datetime: 03/04/2023 13:25 Stage 2 Comments: start of pushing Datetime: 03/04/2023 13:13 VAGINAL EXAM Dilatation (cm): 10.0 Station: 1 Exam by: kerline Cervix, Consistency: Soft Datetime: 03/04/2023 12:50 Temperature (C): 36.7 Datetime: 03/04/2023 12:07 ANESTHESIA Epidural Procedure: Completed Datetime: 03/04/2023 12:02 Anesthesia Comments: Lidocaine Datetime: 03/04/2023 11:56 Effacement (%): 80 Datetime: 03/04/2023 11:32 Patient Position/Activity: Left Tilt; Semi-Fowlers Patient Care Comments: [facility], monitor reapplied Datetime: 03/04/2023 11:30 Medication Comments: IV lock inserted PATIENT CARE IV/Blood Work: IV Started Datetime: 03/04/2023 08:44 I/O Interventions: Up to BR Datetime: 03/04/2023 07:43 Membrane Status: Ruptured Membranes Rupture Method: Spontaneous Amniotic Fluid Color: Clear Amniotic Fluid Amount: Small Amniotic Fluid Odor: Normal Membrane Comments: ruptured when provider performed VE Datetime: 03/04/2023 07:18 Notification Reason: Status; Labor Status Datetime: 03/04/2023 06:55 Plan of Care: Plan of Care Discussed Labor/Induction: Induction Teaching Comments: Discussed with pt again on the reasons for having an IV in during induction, pt verbalized understanding, denies placement at this time. Encouraged pt to continue drinking plenty of fluids Datetime: 03/04/2023 06:24 Respirations: 16 Datetime: 03/04/2023 04:30 Actions for Decelerations: Other Datetime: 03/04/2023 03:57 TEACHING Instructional Method: Verbal; Verbalized Understanding Datetime: 03/04/2023 03:39 Vaginal Bleeding: Scant Cervix, Position: Posterior Cervical Ripening Agents: Cytotec @ Datetime: 03/04/2023 03:37 Bedside Blood Glucose: 78 Datetime: 03/04/2023 01:43 FHR Baseline Changes: No Baseline Change Datetime: 03/04/2023 01:35 PAIN Pain Scale: 0 MATERNAL ASSESSMENT Level of Consciousness: Alert Maternal Comments: Pt denies dizziness, MAHARAJ, and blurry vision Datetime: 03/03/2023 23:25 Headache: Denies Breath Sounds, Left: Clear and Equal Breath Sounds, Right: Clear and Equal Nausea/Vomiting: Denies RUQ Epigastric Pain: Denies Datetime: 02/26/2023 14:48 Membranes Ruptured Date/Time: 03/04/2023 07:43
== END 2023-03-07 13:05 | disposition home or self-care (01) | DRG 788 ==
LOC: WFO 22:00 → FBP 22:02 → WFO 22:36 → INTOOBSV 22:37 → UNDOADMOB 22:37 → FBP 22:37 → OBSVTOIN 22:37 → FBP 03-04 08:10 → OBSVTOIN 03-04 08:10 → FBP 03-06 17:40 → UNDODISIN 03-07 13:05
PROVIDERS: ADMIT Obstetrics & Gynecology; ATTEND Obstetrics & Gynecology Obstetrics
PROC: 10D00Z1 Extraction of Products of Conception, Low, Open Approach (ICD-10-PCS; principal; 2023-03-04 16:00)
DX: O24.425 Gestational diabetes mellitus in childbirth, controlled by oral hypoglycemic drugs (principal); Z3A.39 39 weeks gestation of pregnancy; Z37.0 Single live birth; O32.4XX0 Maternal care for high head at term, not applicable or unspecified; O76 Abnormality in fetal heart rate and rhythm complicating labor and delivery; O99.214 Obesity complicating childbirth
CPT/HCPCS: 36415; 59025; 85025; 86850; 86900; 86901; A9270; J0131; J2795; J7120; 99212

== ENCOUNTER 2023-04-11 10:30 | Outpatient (CLI) | payer BC ==
--- NOTE | 2023-04-11 11:53 | XRAY Report ---
PROCEDURE: Abdomen 1 View X-Ray INDICATIONS: ABDOMINAL PAIN TECHNIQUE: One view of the abdomen acquired. COMPARISON: None. FINDINGS: Surgical changes and devices: None. Bowel: Bowel gas pattern is normal. Large fecal load. Soft tissues: No suspicious abdominal calcifications. Visualized solid organ contours appear normal in size. Bones: No suspicious bony lesions. IMPRESSION: Large fecal load. Reviewed by: Bob Ramirez MD on 04/11/2023 11:51 AM [facility] Approved by: Bob Ramirez MD on 04/11/2023 11:51 AM [facility] Station ID: [id number]
== END 2023-04-11 10:45 | disposition home or self-care (01) ==
LOC: DI.N 10:30
PROVIDERS: ATTEND Physician Assistant Medical
DX: O90.89 Other complications of the puerperium, not elsewhere classified (principal); R10.9 Unspecified abdominal pain; K59.00 Constipation, unspecified
CPT/HCPCS: 36415; 80053; 83690; 85025

== ENCOUNTER 2023-04-11 10:30 | Outpatient (CLI) | payer BC ==
[2023-04-11 18:04] LABS: BASOPHILS % (AUTO) 0.3 %; EOSINOPHILS # (AUTO) 0.1 10^3/uL (0.0-0.7); HCT - HEMATOCRIT 43.1 % (37.0-47.0); HGB - HEMOGLOBIN 13.8 g/dL (12.0-16.0); LYMPHOCYTES # (AUTO) 1.9 10^3/uL (1.5-3.5); LYMPHOCYTES % (AUTO) 19.4 %; MEAN CORPUSCULAR HEMOGLOBIN 30.1 pg (27.0-31.0); MEAN CORPUSCULAR VOLUME 93.9 fL (81.0-99.0); MONOCYTES # (AUTO) 0.6 10^3/uL (0.0-1.0); MONOCYTES % (AUTO) 5.7 %; NEUTROPHILS # (AUTO) 7.3 10^3/uL (1.5-6.6); NEUTROPHILS % (AUTO) 73.4 %; PLT - PLATELET COUNT 246 10^3/uL (130-450); RED BLOOD COUNT 4.59 10^6/uL (4.20-5.40); RED CELL DISTRIBUTION WIDTH 11.9 % (12.0-15.0); WHITE BLOOD COUNT 9.9 x10^3/uL (4.8-10.8)
[2023-04-11 18:22] LABS: ALBUMIN 4.5 g/dL (3.2-5.5); ALBUMIN/GLOBULIN RATIO 1.8 (1.0-2.2); BILIRUBIN,TOTAL 1.3 mg/dL (0.2-1.0); CALCIUM 9.7 mg/dL (8.5-10.3); CREATININE 0.8 mg/dL (0.6-1.3); POTASSIUM 4.1 mmol/L (3.5-4.5)
== END 2023-04-11 10:45 | disposition home or self-care (01) ==
LOC: LAB.N 10:30
PROVIDERS: ATTEND Physician Assistant Medical
DX: R10.9 Unspecified abdominal pain (principal)
CPT/HCPCS: 36415; 80053; 83690; 85025

== ENCOUNTER 2023-05-03 10:49 | Outpatient (CLI) | payer BC ==
[2023-05-03 12:07] LABS: ESTIMATED AVERAGE GLUCOSE 97 mg/dL (70-100)
== END 2023-05-03 10:50 | disposition home or self-care (01) ==
LOC: LAB 10:49
PROVIDERS: ATTEND Nurse Practitioner
DX: Z39.1 Encounter for care and examination of lactating mother (principal)
CPT/HCPCS: 36415; 83036

== ENCOUNTER 2023-05-13 10:55 | Day surgery (SDC) | payer BC ==
[2023-05-13 11:11] LABS: HCG UR QUAL NEGATIVE
[2023-05-13] MEDS ORDERED: LACTATED RINGERS 1,000 ML IV ONE (11:18)
[2023-05-13] MEDS ORDERED: PROPOFOL 200 MG/20 ML VIAL IVP ONE (11:48)
--- NOTE | 2023-05-13 11:48 | ANESTHESIA ---
Pre-Anesthesia VS, & Labs - Diagnosis GERD unresponsive to meds - Procedure EGD Vital Signs: Temp Pulse Resp BP Pulse Ox O2 Flow Rate 36.3 C L 62 13 121/81 H 99 05/13/23 11:21 05/13/23 11:21 05/13/23 11:21 05/13/23 11:21 05/13/23 11:21 Height: 5 ft 7 in Weight (kg): 77 kg Body Mass Index: 26.6 BMI Classification: Overweight - NPO >8 hours - Is Patient ?: No Home Medications and Allergies Allergies/Adverse Reactions: Allergies Allergy/AdvReac Type Severity Reaction Status Date / Time gluten Allergy Cramps Verified 02/08/23 15:08 Anes History & Medical History - Anesthetic History Anesthesia Complications: reports: No previous complications Family history of Anesthesia Complications: Denies Family history of Malignant Hyperthermia: Denies - Medical History Cardiovascular: reports: None Pulmonary: reports: Asthma Gastrointestinal: reports: GERD, Chronic constipation, Hemorrhoids Urinary: reports: Kidney stones Musculoskeletal: reports: Scoliosis, Chronic back pain Endocrine/Autoimmune: reports: None Blood Disorders: reports: None Skin: reports: Eczema Smoking Status: Never smoker Other Past Medical History: 2 months - Surgical History General: reports: EGD Eyes Ears Nose Throat (EENT): reports: Tonsil/Adenoidectomy, Other Gynecologic: reports: section Exam General: Alert, Oriented x3, Cooperative Dental: WNL Mouth Openin Fingerbreadth Neck Mobility: Normal Mallampati classification: II Thyromental Distance: 4-6 cm Respiratory: Lungs clear Cardiovascular: Regular rate Plan Anesthesia Type: General, Total IV Consent for Procedure(s) Verified and Reviewed: Yes Code Status: Attempt Resuscitation ASA classification: 2-Mild systemic disease Is this case an emergency?: No
[2023-05-13] MEDS ORDERED: LACTATED RINGERS 850 ML IV ONE ×2 (12:23)
[2023-05-13 12:42] VITALS: BP 113/68; O2SAT 97
--- NOTE | 2023-05-13 17:06 | ANESTHESIA POST OP EVALUATION ---
Anesthesia Post Eval - Post Anesthesia Eval Vitals: Last Vital Signs Temp 36.0 C L 05/13/23 12:37 Pulse 82 05/13/23 12:37 Resp 16 05/13/23 12:37 BP 113/68 05/13/23 12:37 Pulse Ox 97 05/13/23 12:37 O2 Flow Rate CV Function Including HR & BP: Stable Pain Control: Satisfactory Nausea & Vomiting: Negative Mental Status: Baseline Respiratory Status: Airway Patent Hydration Status: Satisfactory Anesthesia Complications: None
== END 2023-05-13 10:56 | disposition home or self-care (01) ==
LOC: SDS 10:55
PROVIDERS: ATTEND Surgery
PROC: 0DB78ZX Excision of Stomach, Pylorus, Via Natural or Artificial Opening Endoscopic, Diagnostic (ICD-10-PCS; 2023-05-13)
PROC: 0DB48ZX Excision of Esophagogastric Junction, Via Natural or Artificial Opening Endoscopic, Diagnostic (ICD-10-PCS; 2023-05-13)
PROC: 0DB98ZX Excision of Duodenum, Via Natural or Artificial Opening Endoscopic, Diagnostic (ICD-10-PCS; principal; 2023-05-13 12:15)
DX: K21.9 Gastro-esophageal reflux disease without esophagitis (principal); R10.13 Epigastric pain
CPT/HCPCS: 43239; 81025; J7120